=== PATIENT | female | born 1935 | race Caucasian/White ===

== ENCOUNTER 2017-06-25 07:45 | Emergency (ER) | payer MEDICARE, BC ==
[~2017-06-25] VITALS: Ht 167.6 cm; Wt 80.0 kg
[~2017-06-25 07:45] MED LIST: CARB-87 PO; CARV-50 PO; CETI10TA15 PO; ESOM40CA PO; FLEC100T2 PO; LEVO150T PO; RIVA20TA PO; THI100T PO
[2017-06-25] MEDS ORDERED: DICL100G15 TOP (09:51)
[2017-06-25 10:17] VITALS: BP 124/78
== END 2017-06-25 10:19 | disposition home or self-care (01) ==
LOC: ER 07:46
DX: S96.912A Strain of unspecified muscle and tendon at ankle and foot level, left foot, initial encounter (principal); S96.911A Strain of unspecified muscle and tendon at ankle and foot level, right foot, initial encounter; Z95.0 Presence of cardiac pacemaker; Z91.018 Allergy to other foods; Z91.048 Other nonmedicinal substance allergy status; W01.0XXA Fall on same level from slipping, tripping and stumbling without subsequent striking against object, initial encounter; Y93.89 Activity, other specified; Y92.89 Other specified places as the place of occurrence of the external cause; Y99.8 Other external cause status
CPT/HCPCS: 73610; 73630; 99284

== ENCOUNTER 2023-08-19 08:11 | Day surgery (SDC) | payer MEDICARE, BC ==
[2023-08-19] VITALS (8 sets, daily range): BP systolic 104–127; BP diastolic 57–82; PULSE 80–90; RESP 13–17; TEMP 98.4; O2SAT 92–96
[~2023-08-19] VITALS: Ht 165.1 cm; Wt 73.4 kg
[~2023-08-19 08:11] MED LIST changes: +CARB-321 PO; -CARB-87 PO; +DICL100G15 TOP
[2023-08-19] MEDS ORDERED: normal saline 1000ml 1,000 ML IV SCH (08:35)
[2023-08-19] MEDS ORDERED: FURO40TA4 PO (08:38)
[2023-08-19] MEDS ORDERED: KETO5DRO40 LEFTEYE (08:38)
[2023-08-19] MEDS ORDERED: APIX5TAB5 PO (08:38)
[2023-08-19] MEDS ORDERED: POTA-192 PO (08:38)
[2023-08-19] MEDS ORDERED: AMIO200T72 PO (08:38)
[2023-08-19 08:56] LABS: BASOPHILS # (AUTO) 0.1 X10'3 (0-0.2); BASOPHILS % (AUTO) 1.8 % (0-1); EOSINOPHILS # (AUTO) 0.2 X10'3 (0-0.9); HEMATOCRIT 33.9 % (35.0-45.0); HEMOGLOBIN 11.3 g/dl (12.0-16.0); LYMPHOCYTES # (AUTO) 1.4 X10'3 (1.1-4.8); LYMPHOCYTES % (AUTO) 27.6 % (21-51); MEAN CORPUSCULAR HGB CONC 33.4 g/dL (33.0-36.5); MEAN CORPUSCULAR VOLUME 98.6 FL (78-98); MEAN PLATELET VOLUME 7.5 FL (7.4-10.4); MONOCYTES # (AUTO) 0.4 X10'3 (0-0.9); MONOCYTES % (AUTO) 7.5 % (2-12); NEUTROPHILS # (AUTO) 3.1 X10'3 (1.8-7.7); NEUTROPHILS % (AUTO) 59.1 % (42-75); PLATELET COUNT 209 X10'3 (140-440); RED BLOOD COUNT 3.43 X10'6 (4.20-5.60); RED CELL DISTRIBUTION WIDTH 15.3 % (11.5-14.5); WHITE BLOOD COUNT 5.2 X10'3 (4.5-11.0)
[2023-08-19 09:09] LABS: INR 1.1 INR; PROTHROMBIN TIME 11.9 SECONDS (9.0-12.0)
[2023-08-19 09:18] LABS: ALANINE AMINOTRANSFERASE 17 U/L (12-78); ALBUMIN 3.4 G/DL (3.4-5.0); ALBUMIN/GLOBULIN RATIO 0.9 (1.1-1.5); ALKALINE PHOSPHATASE 42 IU/L (46-116); ANION GAP 11 (8-16); ASPARTATE AMINO TRANSFERASE 19 U/L (10-37); BILIRUBIN,TOTAL 0.7 MG/DL (0.1-1.0); BLOOD UREA NITROGEN 32 MG/DL (7-18); BUN/CREATININE RATIO 15.2 (10.0-20.0); CALCIUM 8.4 MG/DL (8.5-10.1); CHLORIDE 105 MMOL/L (99-107); GLUCOSE 96 MG/DL (70-104); MAGNESIUM 2.2 MG/DL (1.5-2.4); POTASSIUM 4.4 MMOL/L (3.5-5.1); SODIUM 140 MMOL/L (135-145); TOTAL CARBON DIOXIDE 24.3 MMOL/L (24-32); TOTAL PROTEIN 7.4 G/DL (6.4-8.2); eCRCL 17 ML/MIN; eGFR 22 ML/MIN
[2023-08-19] MEDS: MIDAZolam 1mg/ml 10ml vial IV ONE (09:37)
[2023-08-19] MEDS: fentaNYL/PF 50MCG/1 ML 2ML syringe IV ONE (09:37)
== END 2023-08-19 11:00 | disposition home or self-care (01) ==
LOC: SSTAY O 08:11
PROVIDERS: ATTEND Internal Medicine Cardiovascular Disease
DX: I48.91 Unspecified atrial fibrillation (principal); I10 Essential (primary) hypertension; E03.9 Hypothyroidism, unspecified; G47.33 Obstructive sleep apnea (adult) (pediatric); I42.9 Cardiomyopathy, unspecified; M81.0 Age-related osteoporosis without current pathological fracture; Z79.890 Hormone replacement therapy; Z79.899 Other long term (current) drug therapy; Z95.0 Presence of cardiac pacemaker; Z96.651 Presence of right artificial knee joint; Z98.890 Other specified postprocedural states
CPT/HCPCS: 36415; 80053; 83735; 85025; 85610; 92960; 93005; J2250; J3010; J7030; A4620

== ENCOUNTER 2024-01-12 10:34 | Inpatient (IN) | payer MEDICARE, BC ==
[2024-01-10 14:23] LABS: BILIRUBIN,URINE NEGATIVE (Neg); CLARITY,URINE CLEAR (Clear); COLOR,URINE YELLOW (Yellow); GLUCOSE, URINE NEGATIVE (Neg); KETONES,URINE NEGATIVE (Neg); LEUKOCYTE ESTERASE ,URINE NEGATIVE (Neg); NITRITES, URINE NEGATIVE (Neg); OCCULT BLOOD,URINE NEGATIVE (Neg); PROTEIN,URINE NEGATIVE (Neg); UROBILINOGEN,URINE 0.2 E.U/dL (0.2-1.0)
[2024-01-10 14:26] LABS: BASOPHILS # (AUTO) 0.1 X10'3 (0-0.2); EOSINOPHILS # (AUTO) 0.1 X10'3 (0-0.9); EOSINOPHILS % (AUTO) 1.8 % (0-6); LYMPHOCYTES # (AUTO) 0.9 X10'3 (1.1-4.8); LYMPHOCYTES % (AUTO) 16.1 % (21-51); MEAN CORPUSCULAR HEMOGLOBIN 32.8 PG (27.0-31.0); MEAN CORPUSCULAR VOLUME 99.4 FL (78-98); MONOCYTES # (AUTO) 0.5 X10'3 (0-0.9); NEUTROPHILS # (AUTO) 4.2 X10'3 (1.8-7.7); NEUTROPHILS % (AUTO) 73.1 % (42-75); PRE OP HEMATOCRIT 36.8 % (35.0-45.0); PRE OP HEMOGLOBIN 12.2 g/dL (12.0-16.0); PRE OP PLATELET COUNT 259 X10'3 (140-440); PRE OP WHITE BLOOD COUNT 5.8 10'3 (4.8-10.8); RED CELL DISTRIBUTION WIDTH 14.4 % (11.5-14.5)
[2024-01-10 14:28] LABS: UA COLLECTION TYPE CLN CATCH MIDSTREAM
[2024-01-10 14:37] LABS: ALBUMIN 3.5 G/DL (3.4-5.0); ALBUMIN/GLOBULIN RATIO 0.8 (1.1-1.5); ALKALINE PHOSPHATASE 45 IU/L (46-116); BLOOD UREA NITROGEN 51 MG/DL (7-18); BUN/CREATININE RATIO 18.3 (10.0-20.0); CALCIUM 10.2 MG/DL (8.5-10.1); CHLORIDE 98 MMOL/L (99-107); CREATININE 2.79 MG/DL (0.40-0.90); PRE OP ALT 46 U/L (30-65); PRE OP ANION GAP 9 (8-16); PRE OP AST 29 U/L (10-37); PRE OP BILIRUB, TOTAL 0.6 MG/DL (0.0-1.0); PRE OP GLUCOSE 105 MG/DL (70-104); PRE OP INR 1.1 INR; PRE OP POTASSIUM 4.1 MMOL/L (3.4-5.1); PRE OP PROTIME 11.5 SECONDS (9.0-12.0); PRE OP SODIUM 135 MMOL/L (135-145); TOTAL CARBON DIOXIDE 27.8 MMOL/L (24-32); TOTAL PROTEIN 7.7 G/DL (6.4-8.2); eGFR 16 ML/MIN
[~2024-01-12] VITALS: Ht 172.7 cm; Wt 67.0 kg
[2024-01-12] VITALS (30 sets, daily range): BP systolic 89–140; BP diastolic 49–85; PULSE 80–89; RESP 0–18; TEMP 97.6–98; O2SAT 89–99
[2024-01-12] MEDS: DOCUMENT DATE & TIME OF BETA-BLOCKER PO ONE (08:00)
[~2024-01-12 10:34] MED LIST changes: +AMIO200T72 PO; +APIX5TAB5 PO; +BUSP5TAB3 PO; -CARB-321 PO; -CETI10TA15 PO; -DICL100G15 TOP; -ESOM40CA PO; -FLEC100T2 PO; +FURO40TA4 PO; +LIDOcaine 1% (10mg/ml) 2ml vial ONE; +POTA-192 PO; -RIVA20TA PO; -THI100T PO; +ondansetron/PF 4mg/2ml inj IV PRN
[2024-01-12] MEDS: famotidine 20mg tablet PO ONE (11:53)
[2024-01-12] MEDS: cefazolin 2gm/D5W 100mL 100 ML IV ONE (12:03)
[2024-01-12] MEDS: ringers solution, lacted 1,000 ML IV SCH ×2 (12:03→20:00)
[2024-01-12] MEDS: vancomycin/NS 1 GM in NS 250 ML IV ONE (12:03)
[2024-01-12] MEDS ORDERED: LIDOcaine 1% (10mg/ml) 2ml vial ONE (14:21)
[2024-01-12] MEDS ORDERED: ondansetron/PF 4mg/2ml inj ONE (14:26)
[2024-01-12] MEDS ORDERED: HYDROmorphone/PF 0.2 MG/ML SYRINGE IV PRN (14:35)
[2024-01-12] MEDS ORDERED: hydrALAZINE 20mg/ml inj. IV PRN ×2 (14:35→15:40)
[2024-01-12] MEDS ORDERED: proCHLORperazine 10 MG/2 ml inj IV PRN ×2 (14:35→15:40)
[2024-01-12] MEDS ORDERED: labetalol 20mg/4ml (5mg/ml) syringe IV PRN ×2 (14:35→15:40)
[2024-01-12] MEDS ORDERED: meperidine/PF 25mg/ml syringe IV PRN (14:35)
[2024-01-12] MEDS ORDERED: morphine 4 MG/ML inj SYRINge IV PRN (14:35)
[2024-01-12] MEDS ORDERED: morphine 2 MG/ML inj. syringe IV PRN (14:35)
[2024-01-12] MEDS ORDERED: ondansetron/PF 4mg/2ml inj IV PRN ×2 (14:35→15:40)
[2024-01-12] MEDS ORDERED: iohexol 350MG/ML 100ml bottle IV ONE (14:45)
[2024-01-12] MEDS ORDERED: sevoflurane 250ml liquid IH ONE (14:46)
[2024-01-12] MEDS ORDERED: midazolam 1 mg/ML 2ml injection ONE (14:54)
[2024-01-12] MEDS ORDERED: morphine 4 MG/ML inj SYRINge ONE (15:06)
[2024-01-12] MEDS: protamine sulfate 10mg/ml inj. ONE (15:09)
[2024-01-12] MEDS ORDERED: propofol inj 20 ML IV ONE (15:19)
[2024-01-12] MEDS ORDERED: dexamethasone sod phosphate 4mg/ml inj. ONE (15:19)
[2024-01-12] MEDS ORDERED: LIDOcaine 1%/PF 5ML 10 MG/ML VIAL ONE (15:19)
[2024-01-12] MEDS ORDERED: rocuronium 10mg/ml inj IV ONE (15:19)
[2024-01-12] MEDS ORDERED: heparin 1,000unit/ml 10ml vial 10 ML ONE (15:20)
[2024-01-12] MEDS ORDERED: ePHEDrine 50MG/ML INJ. ONE (15:20)
[2024-01-12] MEDS ORDERED: neostigmine methylsulfate 1 MG/ML 10ml vial ONE (15:39)
[2024-01-12] MEDS ORDERED: potassium Cl 20mEq/100mL bag 100 ML IV PRN (15:40)
[2024-01-12] MEDS ORDERED: magnesium sulf-water 4G/100mL 100 ML IV PRN (15:40)
[2024-01-12] MEDS ORDERED: diphenhydrAMINE 25mg capsule PO PRN (15:40)
[2024-01-12] MEDS ORDERED: magnesium sulf-water 2g/50mL 50 ML IV PRN (15:40)
[2024-01-12] MEDS ORDERED: HYDROcodone/acetaminophen 5mg/325mg tablet PO PRN (15:40)
[2024-01-12] MEDS: normal saline 1000ml 1,000 ML IV SCH (15:40)
[2024-01-12] MEDS ORDERED: potassium Cl 20 mEq SR tablet PO PRN (15:40)
[2024-01-12] MEDS ORDERED: pantoprazole 40mg Tablet.DR PO PRN (15:40)
[2024-01-12] MEDS ORDERED: potassium Cl 40MEQ/270ML bag 250 ML IV PRN (15:40)
[2024-01-12] MEDS ORDERED: acetaminophen 325mg tablet PO PRN (15:40)
[2024-01-12] MEDS ORDERED: potassium Cl 40MEQ/1/2NS 520ml 520 ML IV PRN (15:40)
[2024-01-12] MEDS ORDERED: potassium CL 10mEq/100ml bag 100 ML IV PRN (15:40)
[2024-01-12] MEDS ORDERED: docusate sod 100mg capsule PO PRN (15:40)
[2024-01-12] MEDS: sod chloride 0.9% 10ml flush syringe IV SCH (16:00)
[2024-01-12] MEDS: acetaminophen 1,000mg/100ml IV 100 ML IV ONE (17:53)
[2024-01-12] MEDS: HYDROmorphone/PF 0.2 MG/ML SYRINGE IV PRN (17:53)
[2024-01-12] MEDS: amiodarone 200mg tablet PO SCH (22:58)
[2024-01-12] MEDS: busPIRone 5mg tablet PO SCH (22:58)
[2024-01-12] MEDS: vancomycin/NS 1 GM ADD-VANTAGE 250 ML IV SCH (22:59)
[2024-01-12] MEDS: carVEDilol 12.5mg tablet PO SCH (23:00)
[2024-01-13] VITALS (8 sets, daily range): BP systolic 92–105; BP diastolic 49–60; PULSE 60–79; RESP 10–18; TEMP 97.7–98.1; O2SAT 94–98
[2024-01-13] MEDS: ceFAZolin 1GM/D5W- ADD-VANTAGE 50 ML IV SCH (01:20)
[2024-01-13] MEDS: ALPRAZolam 0.25mg tablet PO PRN (01:27)
[2024-01-13 06:23] LABS: INR 1.1 INR; PROTHROMBIN TIME 11.4 SECONDS (9.0-12.0)
[2024-01-13 06:27] LABS: BASOPHILS % (AUTO) 0.6 % (0-1); EOSINOPHILS % (AUTO) 0 % (0-6); HEMATOCRIT 30.1 % (35.0-45.0); LYMPHOCYTES # (AUTO) 0.4 X10'3 (1.1-4.8); LYMPHOCYTES % (AUTO) 6.6 % (21-51); MEAN CORPUSCULAR HEMOGLOBIN 33.1 PG (27.0-31.0); MEAN CORPUSCULAR HGB CONC 33.4 g/dL (33.0-36.5); MEAN CORPUSCULAR VOLUME 99.1 FL (78-98); MEAN PLATELET VOLUME 7.9 FL (7.4-10.4); MONOCYTES # (AUTO) 0.1 X10'3 (0-0.9); NEUTROPHILS % (AUTO) 90.8 % (42-75); PLATELET COUNT 195 X10'3 (140-440); RED BLOOD COUNT 3.04 X10'6 (4.20-5.60); RED CELL DISTRIBUTION WIDTH 14.2 % (11.5-14.5); WHITE BLOOD COUNT 5.5 X10'3 (4.5-11.0)
[2024-01-13 06:36] LABS: ALANINE AMINOTRANSFERASE 40 U/L (12-78); ALBUMIN 2.8 G/DL (3.4-5.0); ALBUMIN/GLOBULIN RATIO 0.8 (1.1-1.5); ALKALINE PHOSPHATASE 53 IU/L (46-116); ANION GAP 10 (8-16); ASPARTATE AMINO TRANSFERASE 43 U/L (10-37); BILIRUBIN,TOTAL 0.6 MG/DL (0.1-1.0); BLOOD UREA NITROGEN 51 MG/DL (7-18); BUN/CREATININE RATIO 19.2 (10.0-20.0); CALCIUM 9.1 MG/DL (8.5-10.1); CHLORIDE 102 MMOL/L (99-107); CREATININE 2.66 MG/DL (0.40-0.90); GLUCOSE 135 MG/DL (70-104); PRO BRAIN NATRIURETIC PEPTIDE 4242 PG/ML (0-450); SODIUM 137 MMOL/L (135-145); TOTAL CARBON DIOXIDE 24.6 MMOL/L (24-32); TOTAL PROTEIN 6.5 G/DL (6.4-8.2); eCRCL 14 ML/MIN; eGFR 17 ML/MIN
[2024-01-13] MEDS: furosemide 40mg tablet PO SCH (08:00)
[2024-01-13] MEDS: levoTHYROXINE 75mcg tablet PO SCH (08:02)
[2024-01-13] MEDS: apixaban 2.5mg tablet PO SCH (08:02)
== END 2024-01-13 17:29 | disposition home or self-care (01) | DRG 274 ==
LOC: PAS IN 10:34 → PCU 3S 15:38
PROVIDERS: ADMIT Student in an Organized Health Care Education/Training Program; ATTEND Student in an Organized Health Care Education/Training Program
PROC: B24BZZ4 Ultrasonography of Heart with Aorta, Transesophageal (ICD-10-PCS; 2024-01-12)
PROC: 03HY32Z Insertion of Monitoring Device into Upper Artery, Percutaneous Approach (ICD-10-PCS; 2024-01-12)
PROC: 02L73DK Occlusion of Left Atrial Appendage with Intraluminal Device, Percutaneous Approach (ICD-10-PCS; principal; 2024-01-12 14:46)
DX: I48.91 Unspecified atrial fibrillation (principal); Z00.6 Encounter for examination for normal comparison and control in clinical research program; I50.30 Unspecified diastolic (congestive) heart failure; I13.0 Hypertensive heart and chronic kidney disease with heart failure and stage 1 through stage 4 chronic kidney disease, or unspecified chronic kidney disease; E03.9 Hypothyroidism, unspecified; I42.9 Cardiomyopathy, unspecified; I08.1 Rheumatic disorders of both mitral and tricuspid valves; N18.9 Chronic kidney disease, unspecified; Z79.01 Long term (current) use of anticoagulants
CPT/HCPCS: 33340; 36415; 71045; 71046; 76937; 80053; 81003; 82948; 83735; 83880; 84443; 85025; 85347; 85610; 85730; 86885; 86900; 86901; 86920; 87081; 93005; 93308; 93312; 93325; A4615; A4618; A6258; A6449; C1760; C1889; C1893; C1894; G0378; J0131; J0690; J1100; J1170; J1644; J2250; J2270; J2405; J2704; J2710; J2720; J3370; J3490; J7030; J7040; J7120; Q9967

== ENCOUNTER 2024-03-06 11:44 | Day surgery (SDC) | payer MEDICARE, BC ==
[~2024-03-06] VITALS: Ht 172.7 cm; Wt 66.4 kg
[2024-03-06] VITALS (14 sets, daily range): BP systolic 104–163; BP diastolic 58–110; PULSE 80–83; RESP 10–12; TEMP 98.2; O2SAT 92–99
[~2024-03-06 11:44] MED LIST changes: +BUSP10TA11 PO; -BUSP5TAB3 PO; -CARV-50 PO; +CARV3.12 PO; -LIDOcaine 1% (10mg/ml) 2ml vial ONE; -ondansetron/PF 4mg/2ml inj IV PRN
[2024-03-06 13:05] LABS: BASOPHILS # (AUTO) 0.1 X10'3 (0-0.2); BASOPHILS % (AUTO) 1.1 % (0-1); EOSINOPHILS # (AUTO) 0.3 X10'3 (0-0.9); EOSINOPHILS % (AUTO) 4.4 % (0-6); HEMATOCRIT 36.6 % (35.0-45.0); LYMPHOCYTES % (AUTO) 16.1 % (21-51); MEAN CORPUSCULAR HEMOGLOBIN 32.4 PG (27.0-31.0); MEAN CORPUSCULAR HGB CONC 32.9 g/dL (33.0-36.5); MEAN CORPUSCULAR VOLUME 98.6 FL (78-98); MEAN PLATELET VOLUME 7.9 FL (7.4-10.4); MONOCYTES # (AUTO) 0.6 X10'3 (0-0.9); MONOCYTES % (AUTO) 8.8 % (2-12); NEUTROPHILS # (AUTO) 4.4 X10'3 (1.8-7.7); NEUTROPHILS % (AUTO) 69.6 % (42-75); PLATELET COUNT 296 X10'3 (140-440); RED BLOOD COUNT 3.71 X10'6 (4.20-5.60); RED CELL DISTRIBUTION WIDTH 14.8 % (11.5-14.5); WHITE BLOOD COUNT 6.4 X10'3 (4.5-11.0)
[2024-03-06 13:08] LABS: ALBUMIN 3.5 G/DL (3.4-5.0); ANION GAP 10 (8-16); BLOOD UREA NITROGEN 34 MG/DL (7-18); BUN/CREATININE RATIO 12.2 (10.0-20.0); CALCIUM 11.3 MG/DL (8.5-10.1); CHLORIDE 102 MMOL/L (99-107); CREATININE 2.79 MG/DL (0.40-0.90); GLUCOSE 96 MG/DL (70-104); POTASSIUM 3.7 MMOL/L (3.5-5.1); SODIUM 140 MMOL/L (135-145); TOTAL CARBON DIOXIDE 28.4 MMOL/L (24-32); eCRCL 14 ML/MIN; eGFR 16 ML/MIN
[2024-03-06 13:12] LABS: APTT 29 SECONDS (22-32); INR 1.1 INR; PROTHROMBIN TIME 11.9 SECONDS (9.0-12.0)
[2024-03-06] MEDS: normal saline 1000ml 1,000 ML IV SCH (15:33)
[2024-03-06] MEDS: fentaNYL/PF 50MCG/1 ML 2ML syringe IV ONE (15:33)
[2024-03-06] MEDS: MIDAZolam 1mg/ml 10ml vial IV ONE (15:33)
[2024-03-06] MEDS ORDERED: CLOP75TA34 PO (15:51)
[2024-03-06] MEDS ORDERED: ASPI-1265 PO (15:51)
== END 2024-03-06 16:25 | disposition home or self-care (01) ==
LOC: SSTAY O 11:44
PROVIDERS: ATTEND Student in an Organized Health Care Education/Training Program
DX: I48.0 Paroxysmal atrial fibrillation (principal); I12.9 Hypertensive chronic kidney disease with stage 1 through stage 4 chronic kidney disease, or unspecified chronic kidney disease; N18.4 Chronic kidney disease, stage 4 (severe); I25.10 Atherosclerotic heart disease of native coronary artery without angina pectoris; E03.9 Hypothyroidism, unspecified; I42.9 Cardiomyopathy, unspecified; G47.33 Obstructive sleep apnea (adult) (pediatric); M81.0 Age-related osteoporosis without current pathological fracture; Z79.01 Long term (current) use of anticoagulants; Z79.890 Hormone replacement therapy; Z79.899 Other long term (current) drug therapy; Z95.818 Presence of other cardiac implants and grafts; Z96.651 Presence of right artificial knee joint
CPT/HCPCS: 36415; 80048; 85025; 85610; 85730; 93325; A4620; C8925; J2250; J3010; J7030; 93312

== ENCOUNTER 2024-05-07 11:04 | Day surgery (SDC) | payer MEDICARE, BC ==
[~2024-05-07] VITALS: Ht 162.6 cm; Wt 66.7 kg
[~2024-05-07 11:04] MED LIST changes: +ASPI-1265 PO; +CLOP75TA34 PO
[2024-05-07] MEDS ORDERED: LEVO137T2 PO (11:40)
[2024-05-07] MEDS ORDERED: CLOP75TA34 PO (11:40)
[2024-05-07] MEDS ORDERED: AMI200T PO (11:40)
[2024-05-07] MEDS ORDERED: ceFAZolin 2gm in dextrose, iso 50 ML IV ONE (11:41)
[2024-05-07] MEDS ORDERED: MELA5TAB12 PO (11:42)
[2024-05-07] MEDS ORDERED: KETO5DRO40 EACHEYE (11:42)
[2024-05-07 11:53] VITALS: BP 126/76; PULSE 100; RESP 15; TEMP 98.3; O2SAT 97
[2024-05-07 12:28] LABS: INR 1.1 INR; PROTHROMBIN TIME 11.1 SECONDS (9.0-12.0)
[2024-05-07 12:33] LABS: ALBUMIN 3.3 G/DL (3.4-5.0); ANION GAP 7 (8-16); BLOOD UREA NITROGEN 38 MG/DL (7-18); BUN/CREATININE RATIO 13.7 (10.0-20.0); CALCIUM 9.4 MG/DL (8.5-10.1); CHLORIDE 101 MMOL/L (99-107); CREATININE 2.77 MG/DL (0.40-0.90); GLUCOSE 102 MG/DL (70-104); MAGNESIUM 2.2 MG/DL (1.5-2.4); POTASSIUM 3.3 MMOL/L (3.5-5.1); SODIUM 138 MMOL/L (135-145); TOTAL CARBON DIOXIDE 29.7 MMOL/L (24-32); eCRCL 12 ML/MIN; eGFR 16 ML/MIN
[2024-05-07] MEDS: VANCOMYCIN 1GM 200ML H20 (PEG) 200 ML IV ONE (12:34)
[2024-05-07] MEDS: normal saline 1000ml 1,000 ML IV SCH (12:34)
[2024-05-07 13:30] VITALS: RESP 15; O2SAT 97
[2024-05-07 14:26] LABS: BASOPHILS # (AUTO) 0.1 X10'3 (0-0.2); EOSINOPHILS # (AUTO) 0.1 X10'3 (0-0.9); EOSINOPHILS % (AUTO) 1.7 % (0-6); HEMATOCRIT 32.1 % (35.0-45.0); HEMOGLOBIN 10.7 g/dl (12.0-16.0); LYMPHOCYTES # (AUTO) 1.1 X10'3 (1.1-4.8); LYMPHOCYTES % (AUTO) 20.3 % (21-51); MEAN CORPUSCULAR HEMOGLOBIN 32.7 PG (27.0-31.0); MEAN CORPUSCULAR HGB CONC 33.5 g/dL (33.0-36.5); MEAN CORPUSCULAR VOLUME 97.8 FL (78-98); MEAN PLATELET VOLUME 7.8 FL (7.4-10.4); MONOCYTES # (AUTO) 0.2 X10'3 (0-0.9); MONOCYTES % (AUTO) 3.5 % (2-12); NEUTROPHILS # (AUTO) 3.9 X10'3 (1.8-7.7); NEUTROPHILS % (AUTO) 73.5 % (42-75); PLATELET COUNT 172 X10'3 (140-440); RED BLOOD COUNT 3.29 X10'6 (4.20-5.60); RED CELL DISTRIBUTION WIDTH 15.8 % (11.5-14.5); WHITE BLOOD COUNT 5.4 X10'3 (4.5-11.0)
[2024-05-07] MEDS ORDERED: LIDOcaine 1% W/epiNEPHrine 1:100,000 20ml vial ONE (15:08)
[2024-05-07] MEDS ORDERED: fentaNYL/PF 50MCG/1 ML 2ML syringe ONE (15:08)
[2024-05-07] MEDS ORDERED: midazolam 1 mg/ML 2ml injection ONE (15:08)
[2024-05-07] MEDS ORDERED: vancomycin 1,000mg inj ONE (15:08)
[2024-05-07] MEDS ORDERED: iohexol 350 MG/ML 50ML vial IV ONE (15:08)
[2024-05-07 16:39] VITALS: BP 117/56; PULSE 67; RESP 13; O2SAT 96
[2024-05-07 16:54] VITALS: BP 101/50; PULSE 67; RESP 14; O2SAT 95
[2024-05-07 17:09] VITALS: BP 91/54; PULSE 62; RESP 13; O2SAT 96
[2024-05-07 17:24] VITALS: BP 106/53; PULSE 64; RESP 12; O2SAT 97
== END 2024-05-07 18:30 | disposition home or self-care (01) ==
LOC: SSTAY O 11:04
PROVIDERS: ATTEND Internal Medicine Cardiovascular Disease
DX: T82.111A Breakdown (mechanical) of cardiac pulse generator (battery), initial encounter (principal); I12.9 Hypertensive chronic kidney disease with stage 1 through stage 4 chronic kidney disease, or unspecified chronic kidney disease; N18.4 Chronic kidney disease, stage 4 (severe); E03.9 Hypothyroidism, unspecified; I42.0 Dilated cardiomyopathy; I48.92 Unspecified atrial flutter; G47.33 Obstructive sleep apnea (adult) (pediatric); M81.0 Age-related osteoporosis without current pathological fracture; Z79.01 Long term (current) use of anticoagulants; Z79.82 Long term (current) use of aspirin; Z79.890 Hormone replacement therapy; Z79.899 Other long term (current) drug therapy; Z96.651 Presence of right artificial knee joint; Z98.890 Other specified postprocedural states; Z88.8 Allergy status to other drugs, medicaments and biological substances; Y71.2 Prosthetic and other implants, materials and accessory cardiovascular devices associated with adverse incidents; Y92.89 Other specified places as the place of occurrence of the external cause
CPT/HCPCS: 33264; 36415; 80048; 83735; 85025; 85610; 93005; 99152; 99153; C1882; J2250; J3010; J3370; J3372; J3490; J7030; 33229; Q9967